=== PATIENT | female | born 2005 | race Caucasian/White ===

== ENCOUNTER 2025-03-18 22:27 | Emergency (ER) | payer SELFPAY ==
[2025-03-18] MEDS: Clindamycin HCl 150 MG Cap PO ONE (23:01)
== END 2025-03-18 23:13 | disposition home or self-care (01) ==
LOC: DL.ED 22:27
DX: L02.415 Cutaneous abscess of right lower limb (principal); L73.2 Hidradenitis suppurativa
CPT/HCPCS: 99282; A9270; 99283

== ENCOUNTER 2025-07-06 12:55 | Emergency (ER) | payer SELFPAY | END 2025-07-06 14:44 | disposition home or self-care (01) | LOC: DL.ED 12:55 | DX: S62.664A Nondisplaced fracture of distal phalanx of right ring finger, initial encounter for closed fracture (principal); W18.39XA Other fall on same level, initial encounter; Y93.89 Activity, other specified | CPT/HCPCS: 29130; 73130-RT; 99283 ==

== ENCOUNTER 2025-07-11 06:19 | Emergency (ER) | payer SELFPAY | END 2025-07-11 07:27 | disposition home or self-care (01) | LOC: DL.ED 06:19 | DX: A59.01 Trichomonal vulvovaginitis (principal); B37.31 Acute candidiasis of vulva and vagina; Z79.899 Other long term (current) drug therapy | CPT/HCPCS: 87210; 99283 ==

== ENCOUNTER 2025-07-30 15:22 | Emergency (ER) | payer SELFPAY | END 2025-07-30 16:37 | disposition home or self-care (01) | LOC: DL.ED 15:22 | DX: K02.9 Dental caries, unspecified (principal) | CPT/HCPCS: 99283 ==

== ENCOUNTER 2025-09-03 12:10 | Emergency (ER) | payer MEDICAID | END 2025-09-03 14:25 | disposition home or self-care (01) | LOC: DL.ED 12:10 | DX: J40 Bronchitis, not specified as acute or chronic (principal); Z79.899 Other long term (current) drug therapy | CPT/HCPCS: 71045; 81025; 94640; 99284; J7620; 99283; A9270-GY ==